=== PATIENT | female | born 1960 | race Caucasian/White ===

== ENCOUNTER 2020-04-20 06:22 | Observation (INO) | payer OTHER ==
[~2020-04-20] VITALS: Ht 165.1 cm; Wt 128.7 kg
[2020-04-20] VITALS (12 sets, daily range): BP systolic 108–129; BP diastolic 54–98
--- NOTE | ~2020-04-20 | P ---
[facility] Fara Cerrato [facility] [place] [address] PROCEDURE REPORT Name: MARIO ALBERTO MINOR Room #: [facility] Mehran Osorio#: [id number] Admission: 04/20/20 Attend Phys: Minh Morris MD Discharge: 04/21/20 Date of : 58 Report #: [id number] THIS REPORT FOR: cc: Stephanie Morelos,Minh Vidal MD ~ CC: Minh Morelos DATE OF SERVICE: 04/20/2020 ATRIAL FIBRILLATION ABLATION PREOPERATIVE DIAGNOSIS: Atrial fibrillation. POSTOPERATIVE DIAGNOSIS: Atrial fibrillation and atrial flutter. PROCEDURES PERFORMED: 1. Atrial fibrillation ablation, CPT code 16310. 2. 3D mapping, CPT code 50936. 3. Arterial line placement, CPT code 28906. 4. Intracardiac echo, CPT code 61066. 5. Focal ablation, CPT code 47593. 6. Second pathway ablation for atrial flutter, CPT code 67173. HISTORY: The patient is a 60-year-old female with history of recurrent atrial fibrillation, here for ablation. ANESTHESIA: The patient underwent general anesthesia with no anesthesia-related complications. DESCRIPTION OF PROCEDURE: The patient underwent informed consent. We discussed the details of the procedure including the risks, which include but not limited to bleeding, vascular damage, stroke, ND as well as cardiac perforation. She understood these risks and is willing to proceed. The patient was brought to the EP laboratory in fasting and sedated state and prepped and draped in a standard fashion. Anesthesia could not obtain arterial access and therefore, I placed a 6-Grenadian short sheath in the right femoral artery, and I placed an 8, 9 and 7-Grenadian short sheath in the right femoral vein, all using the modified Seldinger technique. Next, under fluoroscopy, I placed a decapolar catheter into the coronary sinus and an ICE catheter into the right atrium. Using intracardiac ultrasound, I created a 3D geometry of the left atrium with evidence of two left and two right pulmonary veins. This was merged with the patient's cardiac CT scan. At baseline, the patient was in atrial fibrillation. Next, the patient was systemically heparinized and a [facility] [address] [address] PROCEDURE REPORT Name: MARIO ALBERTO MINOR Room #: 206-P [facility] M.R.#: [id number] Admission: 04/20/20 Attend Phys: Minh Morris MD Discharge: 04/21/20 Date of : 58 Report #: [id number] transseptal was performed using an SL1 sheath and a Halifax needle. The transseptal was straightforward and I then exchanged the SL1 sheath for the cryo sheath and then I used a Lasso catheter to create a 3D voltage map of the left atrium. Next, I started by isolating the pulmonary veins. The left superior pulmonary vein underwent a 120-second freeze followed by a 2-minute freeze. The vein isolated during the first freeze within 34 seconds. I then turned my attention to the left inferior pulmonary vein. I performed a 4-minute, followed by a 3-minute freeze. This vein isolated during the first freeze within 70 seconds. I then turned my attention to the right superior pulmonary vein and performed a 155-second freeze followed by a 3-minute freeze. The vein isolated during the first freeze within 50 seconds. The right inferior pulmonary vein then underwent a 160-second freeze followed by a 125-second freeze. These did not result in isolation despite good attempts. Therefore, I deflected the balloon to the superior aspect of the vessel and performed a 3-minute freeze, which resulted in isolation within 46 seconds. Next, I removed the cryoballoon from the left atrium and using the Lasso catheter, I created a 3D geometry again which showed that we had isolation of the 4 pulmonary veins. I went back into the left atrium with the cryoballoon and performed a roof line. I performed 4 freezes anchored from the left superior pulmonary vein, each of 2 minutes' duration. I then took the cryoballoon to the right superior vein and performed an additional 2 freezes. The esophageal temperatures remained stable throughout this procedure. I then went back in with the Lasso catheter and created a repeat voltage map and now there was posterior roof isolation as well. While we were performing this map, the patient went into atrial flutter. The atrial flutter cycle length was 340 milliseconds and appeared to be cavotricuspid isthmus dependent. Therefore, I pulled my cryo sheath and Lasso catheter to the right atrium and we created a 3D activation voltage map of the atrial flutter and this was consistent with cavotricuspid isthmus-dependent flutter. Therefore, I exchanged for a ramp sheath and an 8 mm ablation catheter. Ablation was performed at 70 buenrostro and 60 degrees, continuous drag lesion was performed and there was acute termination of the atrial flutter. Post-ablation, the transisthmus conduction time was 190 milliseconds in duration with an activation sequence consistent with bidirectional block. As such, the procedure was concluded and the patient was in sinus rhythm. Of note, I did perform a 200 joule synchronized cardioversion after I had created my roofline. Using intracardiac ultrasound, there was no evidence of pericardial effusion. The patient received systemic protamine and once the ACT was within acceptable range, catheters and sheaths were pulled and hemostasis obtained. The patient awoke neurologically and hemodynamically intact, no complications and no significant bleeding. CONCLUSIONS: 1. Successful AFib ablation with wide circumferential ablation of the pulmonary veins. [facility] [address] [place] [address] PROCEDURE REPORT Name: MARIO ALBERTO MINOR Luciana Room #: 206-P [facility] Mehran Mccoy.#: [id number] Admission: 04/20/20 Attend Phys: Minh Morris MD Discharge: 04/21/20 Date of : 58 Report #: [id number] 2. Successful creation of a posterior roofline. 3. Successful atrial flutter ablation with evidence of bidirectional block. By: 1400 [id number] Minh Morris MD /nt
[2020-04-20 07:30] LABS: HEMATOCRIT 40.3 % (37.0-47.0); HEMOGLOBIN 13.3 gm/dL (12.0-15.0); MCH 28.4 pg (26.0-34.0); MCV 86.1 fL (80.0-100.0); PLATELET COUNT 232 thou/uL (150-400); RBC 4.67 mil/uL (4.20-5.00); RDW 14.2 % (10.5-14.5)
[2020-04-20 07:32] LABS: CALCIUM 9.2 mg/dL (8.5-10.1); CREATININE 1.9 mg/dL (0.6-1.0); POTASSIUM 4.3 mmol/L (3.5-5.1)
[2020-04-20 07:37] LABS: TOTAL BILIRUBIN 0.4 mg/dL (0.2-1.0); TOTAL PROTEIN 7.5 g/dL (6.4-8.2)
[2020-04-20] MEDS ORDERED: ELIQUIS5 MG PO (07:43)
[2020-04-20] MEDS ORDERED: ATENOLOL 100MG100 MG PO (07:43)
[2020-04-20 07:44] LABS: APTT 28.8 Seconds (24.5-32.8); INR 1.1
[2020-04-20] MEDS ORDERED: TRICOR145 MG PO (07:44)
[2020-04-20] MEDS ORDERED: FLECAINIDE ACET50 M1 PO ×2 (07:46→07:47)
[2020-04-20] MEDS ORDERED: LASIX 40 MG TAB40 M2 PO (07:47)
[2020-04-20] MEDS ORDERED: CLARITIN10 M2 PO (07:48)
[2020-04-20] MEDS ORDERED: VASCEPA1 GM PO (07:48)
[2020-04-20] MEDS ORDERED: LISINOPRIL-HCT1 EAC1 PO (07:50)
[2020-04-20] MEDS ORDERED: NIFEDIPINE ER60 M1 PO (07:51)
[2020-04-20] MEDS ORDERED: ACTOS 30 MG TAB30 M1 PO (07:52)
[2020-04-20] MEDS ORDERED: PRILOSEC OTC20 MG PO (07:52)
[2020-04-20] MEDS ORDERED: ELLZIA PAK1 EACH TOP (07:57)
[2020-04-20 08:39] LABS: ABSOLUTE NEUTROPHILS 2.5 thou/uL (1.4-8.2); ATYPICAL LYMPHS 1 %
[2020-04-20 08:41] LABS: ANISOCYTOSIS SLIGHT; LARGE PLATELETS OCCASIONAL; POIKILOCYTOSIS SLIGHT
--- NOTE | 2020-04-20 16:38 | NUR ---
PT CARE ASSUMED APPROX 1400. ASSESSMENT CHARTED. PT'S DAUGHTER AT BEDSIDE. BOTH DENY QUESTIONS OR CONCERNS REGARDING POC. PT TOLERATING POC. NO BLEEDING NOTED FROM RIGHT GROIN POST PROCEDURE SITE. DSG HAS DRIED BLOOD. WILL CHANGE SOON ONCE NURSE CAN BE SURE THAT AREA WON'T REBLEED. NO HEMATOMA PRESENT. VSS. MCCONNELL PATENT. WILL REMOVE AFTER BEDREST COMPLETED PER DR's ORDERS. NO DISTRESS NOTED.
[2020-04-21] VITALS: BP 146/74
[2020-04-21 03:40] VITALS: BP 143/68
[2020-04-21 04:00] VITALS: BP 143/85
--- NOTE | 2020-04-21 07:18 | NUR ---
ASSUMED PT CARE AT 1900, PT IS DROWSY, SR ON THE MONITOR, ASESSMENTS CHARTED, DENIES PAIN OR SOB, VSS, MEDICATION GIVEN ORDERED, PT IS MORE COMPLIANT WITH CARE THIS AM, STRAIGHT CATH FOR URINE SAMPLE, PT IS RESTING AT THIS TIME, NO DISTRESS NOTED
--- NOTE | 2020-04-21 07:24 | NUR ---
ASSUMED PT CARE AT 1900, PT IS AWAKE, ALERT AND ORIENTEDX4, PLEASANT, SR ON THE MONITOR, VSS, ASSESSMENTS CHARTED, PT IS STEADY ON THE FEET, DENIES CHEST PIAN OR SOB, SITTING UP IN THE CHAIR, NO DISTRESS NOTED, REPORT PASSED TO DAY NURSE
[2020-04-21 07:33] VITALS: BP 128/65
[2020-04-21 08:23] VITALS: BP 128/65
[2020-04-21 08:31] VITALS: BP 128/65
--- NOTE | 2020-04-21 08:55 | NUR ---
PT CARE ASSUMED APPROX 0700. ASSESSMENT CHARTED. PT DENIES PAIN AND SOA. VSS. UP WITH STEADY GAIT. PT TO BE DISCHARGED. EDUCATION COMPLETED WITH PT BY DR HARDY AND OLGA JUARES. EDUCATION AND PAPERWORK REVIEWED AGAIN WITH PT BY THIS NURSE. PT DENIES QUESTIONS OR CONCERNS REGARDING POST HOSPTIAL CARES AND F/U. RIGHT GROIN POST PROCEDURE SITES C/D/I. PT'S TRANSPORTATION HOME IS REPORTED TO ARRIVE APPROX 1000. WILL ESCORT PT OUT WHEN SHE'S READY.
== END 2020-04-21 09:42 | disposition home or self-care (01) ==
LOC: CATH 06:22 → 2N 14:07 → CATH 14:22 → 2N 04-21 09:42
PROVIDERS: ADMIT Internal Medicine Cardiovascular Disease; ATTEND Internal Medicine Cardiovascular Disease
DX: Z03.818 Encounter for observation for suspected exposure to other biological agents ruled out (principal); I48.91 Unspecified atrial fibrillation; I48.92 Unspecified atrial flutter
CPT/HCPCS: 62110; 62900; 65020; 65040; 70005